=== PATIENT | male | born 1995 | race Caucasian/White ===

== ENCOUNTER 2022-07-26 17:20 | Emergency (ER) | payer OTHER ==
[2022-07-26 17:48] VITALS: TEMP 98.5
--- NOTE | 2022-07-26 18:16 | XR ---
EXAMINATION TYPE: XR chest 2V DATE OF EXAM: 07/26/2022 5:59 PM COMPARISON: none TECHNIQUE: XR chest 2V Frontal and lateral views of the chest. CLINICAL INDICATION:Male, 26 years old with history of pain; FINDINGS: Lungs/Pleura: There is no evidence of pleural effusion, focal consolidation, or pneumothorax. Pulmonary vascularity: Unremarkable. Heart/mediastinum: Cardiomediastinal silhouette is unremarkable. Musculoskeletal: No acute osseous pathology. IMPRESSION: No acute cardiopulmonary disease/process.
--- NOTE | 2022-07-26 18:19 | XR ---
EXAMINATION TYPE: XR shoulder complete LT DATE OF EXAM: 07/26/2022 5:59 PM INDICATION: Patient age:Male; 26 years old; Reason for study: pain; COMPARISON: None TECHNIQUE: The left shoulder was examined in AP, internally rotated and scapular Y projections. . FINDINGS: Multiple fracture lines seen through the left proximal humerus/head/greater tuberosity. There is mild soft tissue edema and a joint effusion present. No additional fractures. Mild displacement fracture fragments. IMPRESSION: Comminuted proximal left humerus fracture. Suspected intra-articular extension.
--- NOTE | 2022-07-26 20:27 | ED ---
Chest Pain HPI - General Chief Complaint: Chest Pain Stated Complaint: chest pain, lt shoulder injury, foreign bodyrthand Time Seen by Provider: 07/26/22 19:24 Source: patient Mode of arrival: ambulatory - History of Present Illness Initial Comments: This patient is 26-year-old man here from [facility] to have evaluation of chest pains that been going on intermittently for number weeks. He had described those intake and they sent him here for evaluation. The patient was having substernal, sharp, pains that would come and go briefly. They are not related to exertion. He was not having any associated dyspnea, diaphoresis, palpitations, nausea or vomiting, lightheadedness or syncope. The patient also was concerned about left shoulder that had been diagnosed with fracture proximal 3 weeks ago at another hospital. He states that he was not given adequate follow-up plan. He denies weakness or numbness distal to the injury. He does have range of motion at shoulder. MD Complaint: chest pain -: week(s) Onset: during rest Pain Location: substernal Quality: sharp Consistency: intermittent Improves With: nothing Worsens With: nothing Treatments Prior to Arrival: none - Related Data Allergies Allergy/AdvReac Type Severity Reaction Status Date / Time No Known Allergies Allergy Verified 07/26/22 17:48 Review of Systems ROS Statement: Those systems with pertinent positive or pertinent negative responses have been documented in the HPI. ROS Other: All systems not noted in ROS Statement are negative. Constitutional: Denies: fever, chills Respiratory: Denies: cough, dyspnea Cardiovascular: Reports: chest pain. Denies: palpitations, orthopnea, edema, syncope Gastrointestinal: Denies: abdominal pain, nausea, vomiting Genitourinary: Denies: dysuria, hematuria Musculoskeletal: Reports: as per HPI, arthralgia. Denies: back pain Skin: Denies: rash Neurological: Denies: headache, weakness EKG Findings - EKG Results: EKG: interpreted by TERI, sinus rhythm (With sinus arrhythmia rate 74 bpm), normal axis, normal QRS, normal ST/T, no acute changes - GA, Pacemaker, Normal: Normal tracing: normal tracing Past Medical History Past Medical History: Hypertension History of Any Multi-Drug Resistant Organisms: None Reported Past Surgical History: No Surgical Hx Reported Past Psychological History: No Psychological Hx Reported, ADD/ADHD, Bipolar, Depression Smoking Status: Current every day smoker Past Alcohol Use History: Abuse Past Drug Use History: Marijuana General Exam General appearance: alert, in no apparent distress Head exam: Present: atraumatic Eye exam: Present: normal appearance. Absent: scleral icterus, conjunctival injection ENT exam: Present: normal oropharynx Neck exam: Present: normal inspection Respiratory exam: Present: normal lung sounds bilaterally. Absent: respiratory distress, wheezes, rales, rhonchi, stridor Cardiovascular Exam: Present: regular rate, normal rhythm, normal heart sounds. Absent: systolic murmur, diastolic murmur, rubs, gallop GI/Abdominal exam: Present: soft. Absent: distended, tenderness, guarding, rebound, rigid, mass Extremities exam: Present: normal inspection, full ROM, tenderness, normal capillary refill. Absent: pedal edema, calf tenderness Back exam: Present: normal inspection. Absent: CVA tenderness (R), CVA tenderness (L) Neurological exam: Present: alert. Absent: motor sensory deficit Skin exam: Present: warm, dry, intact, normal color. Absent: rash Course Vital Signs 07/26/22 07/26/22 17:43 21:00 Temperature 98.5 F Pulse Rate 84 68 Respiratory 16 18 Rate Blood Pressure 175/68 156/84 O2 Sat by Pulse 99 98 Oximetry Chest Pain [facility] Patient is 26-year-old man presenting here with atypical chest pain. No concerning factors on the history and physical exam for cardiac disease. The patient is sent for chest x-ray which reveals no pulmonary infiltrate, normal cardiac size, no vascular congestion as interpreted by myself. The patient sent for shoulder x-ray which does appear to show fracture to the ball of the humerus, no dislocation. The patient is clear to return to [place] for further inpatient rehab. He will need to follow-up with orthopedics to have constipation for his left humerus fracture, with possible surgical management required. Status appropriate further care and follow-up as well as return parameters. Was pt. sent in by a medical professional or institution? @ -[Sent by nurse at [facility] Did you speak to anyone other than the patient for history? @ -[No Did you review nursing and triage notes? @ -[agree Were old charts reviewed? @ -No records to review Differential Diagnosis? @ -[Differential Chest Pain: Stable Angina, Unstable Angina, STEMI, NSTEMI Aortic Dissection, Pneumothorax, Musculoskeletal, Esophageal Spasm GERD, Cholecystitis, Pancreatitis, Zoster, this is not meant to be an all-inclusive list. EKG interpreted by me (3pts min.)? @ -[See chart X-rays interpreted by me (1pt min.)? @ -[See chart CT interpreted by me (1pt min.)? @ -[none] U/S interpreted by me (1pt. min.)? @ -[none] What testing was considered but not performed? (CT, X-rays, U/S, labs)? Why? @ [No What meds were considered but not given? Why? @ -[none] Did you discuss the management of the patient with other professionals? @ -[None Did you reconcile home meds? @ -[none] Was smoking cessation discussed for >3mins.? @ -[none] Was critical care preformed (if so, how long)? @ -[none] Were there social determinants of health that impacted care today? How? (Homelessness, low income, unemployed, alcoholism, drug addiction, transportation, low edu. Level, literacy, decrease access to med. care, [facility], rehab)? @ -[Patient is currently in rehabilitation Center Was there de-escalation of care discussed even if they declined? (Discuss DNR or withdrawal of care, Hospice)? @ -[No What co-morbidities impacted this encounter? (DM, HTN, Smoking, COPD, CAD, Cancer, CVA, Hep., AIDS, mental health diagnosis, sleep apnea, morbid obesity)? @ -[None Was patient admitted / discharged? @ -[Discharged Undiagnosed new problem with uncertain prognosis? @ -[none] Drug Therapy requiring intensive monitoring for toxicity (Heparin, Nitro, Insulin, Cardizem)? @ -[none] Were any procedures done? @ -[none] Diagnosis/symptom? @ -[1. Acute uncomplicated chest pain 2. Subacute left humeral head fracture Acute, or Chronic, or Acute on Chronic? @ -[default] Uncomplicated (without systemic symptoms) or Complicated (systemic symptoms)? @ -[Uncomplicated Side effects of treatment? @ -[none] Exacerbation, Progression, or Severe Exacerbation] @ -[no] Poses a threat to life or bodily function? @ -[no] Disposition Clinical Impression: Atypical chest pain, Humerus fracture Disposition: HOME SELF-CARE Condition: Good Instructions (If sedation given, give patient instructions): Chest Pain (ED), Proximal Humerus Fracture (ED) Is patient prescribed a controlled substance at d/c from ED?: No Referrals: None,Stated [Primary Care Provider] - 1-2 days Oneil Hatfield DO [Doctor of Osteopathic Medicine] - 1-2 days
[2022-07-26 21:01] VITALS: BP 156/84; PULSE 68; RESP 18
== END 2022-07-26 21:01 | disposition home or self-care (01) ==
LOC: EC 17:20
DX: S42.302A Unspecified fracture of shaft of humerus, left arm, initial encounter for closed fracture (principal); R07.89 Other chest pain; I10 Essential (primary) hypertension; F31.9 Bipolar disorder, unspecified; F17.200 Nicotine dependence, unspecified, uncomplicated; F12.90 Cannabis use, unspecified, uncomplicated; X58.XXXA Exposure to other specified factors, initial encounter
CPT/HCPCS: 71046; 93005; 99285